=== PATIENT | male | born 1955 | race Caucasian/White ===

== ENCOUNTER 2023-09-19 07:58 | Emergency (ER) | payer MEDICARE, SELFPAY ==
[2023-09-19 07:58] VITALS: BP 127/77; PULSE 68; RESP 17; TEMP 37.2; O2SAT 98
--- NOTE | 2023-09-19 08:07 | ED.GENADULT ---
HPI - General Adult General Chief complaint: Skin/Abscess/Foreign Body Stated complaint: rash Time Seen by Provider: 09/19/23 08:04 History of Present Illness HPI narrative: Goyo is a 68M that was cutting wood in the timber 3 days ago. 2 days ago he developed and erythematous rash with mild itching on his torso and all 4 extremities. No dyspnea, fevers, new meds or other new exposures. Related Data Allergies Allergy/AdvReac Type Severity Reaction Status Date / Time No Known Allergies Allergy Unknown Verified 09/19/23 08:02 Review of Systems Review of Systems: All systems reviewed & are unremarkable except as noted in HPI and below Exam Const: General: cooperative, healthy appearing, comfortable, no acute distress, well developed, alert, awake and Physically active Orientation/consciousness: oriented to person, oriented to place and oriented to time HENMT: Head: normal to inspection, normocephalic and atraumatic Ears: hearing grossly normal bilaterally and external ears normal Face/Nose/Sinus: Normal external nose present Eyes: General: appearance normal, both eyes and all related structures Periorbital: periorbital findings normal Sclera: sclerae normal Pupils: Equal, round and reactive pupils present Neck: Neck: normal visual inspection Chest: Chest palpation & inspection: normal inspection of the chest Resp: Effort & Inspection: normal respiratory effort, able to speak in complete sentences and no respiratory distress Cardio: Jugular venous distension: no JVD Skin: General skin exam: normal color and no rashes or lesions noted Other: diffuse erythematous maculopapular rash all over his torso and all 4 extremities Neuro: General: oriented to person, oriented to place and oriented to time Cranial nerves: Yes Equal, round and reactive pupils present Extrem: General: normal to inspection Course Vital Signs Vital signs: Vital Signs Temperature 98.9 F 09/19/23 07:58 Pulse Rate 68 09/19/23 07:58 Respiratory Rate 17 09/19/23 07:58 Blood Pressure 127/77 09/19/23 07:58 Pulse Oximetry 98 09/19/23 07:58 Oxygen Delivery Room Air 09/19/23 07:58 Temperature 98.9 F 09/19/23 07:58 Pulse Rate 68 09/19/23 07:58 Respiratory Rate 17 09/19/23 07:58 Blood Pressure 127/77 09/19/23 07:58 Pulse Oximetry 98 09/19/23 07:58 Oxygen Delivery Room Air 09/19/23 07:58 Medical Decision Making Vital Signs Vital Signs: Vital Signs Temperature 98.9 F 09/19/23 07:58 Pulse Rate 68 09/19/23 07:58 Respiratory Rate 17 09/19/23 07:58 Blood Pressure 127/77 09/19/23 07:58 Pulse Oximetry 98 09/19/23 07:58 Oxygen Delivery Room Air 09/19/23 07:58 Temperature 98.9 F 09/19/23 07:58 Pulse Rate 68 09/19/23 07:58 Respiratory Rate 09/19/23 07:58 Blood Pressure 127/77 09/19/23 07:58 Pulse Oximetry 98 09/19/23 07:58 Oxygen Delivery Room Air 09/19/23 07:58 Discharge Plan Discharge Clinical Impression: Contact dermatitis Patient Disposition: Home, Self-Care Condition: Stable Instructions: Contact Dermatitis (ED) Prescriptions: New betamethasone dipropionate 0.05 % cream 1 applic topical BID PRN (Reason: rash) 5 Days Qty: 45 0RF Follow-up/Referrals: UNKNOWN,DOCTOR [Primary Care Provider] - Stand Alone Forms: Work/School Release IP
[2023-09-19] MEDS: methylPREDNISolone SOD SUCC 125 MG VIAL IM (08:14)
[2023-09-19 08:32] VITALS: BP 127/77; PULSE 68; RESP 17; TEMP 37.2; O2SAT 98
== END 2023-09-19 08:32 | disposition home or self-care (01) ==
LOC: CHSED 08:29
PROVIDERS: Emergency Provider Family Medicine; PCP Internal Medicine
DX: L25.9 Unspecified contact dermatitis, unspecified cause (principal)
CPT/HCPCS: 96372; 99283; J2919

== ENCOUNTER 2024-09-19 14:31 | Outpatient (CLI) | payer MEDICARE, SELFPAY ==
--- NOTE | ~2024-09-19 | XR_ITS ---
Clinical Indication: Tick bite, chest pain PA and lateral views of the chest: Comparison: 10/14/2016 Findings: The lungs are clear, without evidence of focal consolidation or pleural effusion. Cardiome diastinal silhouette is within normal limits. Bones and soft tissues are unremarkable. Impression: Normal chest. Reviewed, dictated and finalized at location . Impression: Normal chest.
[2024-09-19 14:58] LABS: Hematocrit 43.5 % (37.0-46.0); Hemoglobin 14.3 g/dL (12.4-15.3); Mean Corpuscular HGB Conc 32.9 g/dL (32-36); Mean Corpuscular Volume 94.4 fL (78.0-102.0); Mean Platelet Volume 9.9 fl (8.7-11.0); Platelet Count Result 273 K/mm3 (150-420); Red Blood Count 4.61 M/mm3 (4.70-6.10); Red Cell Distribution Width 12.9 % (11.6-14.4); White Blood Count 10.1 K/mm3 (4.8-10.8)
[2024-09-19 15:02] LABS: Add Urine Microscopic? YES; Appearance Urine Clear (Clear); Bilirubin Urine Negative (Negative); Blood Urine 1+ (Negative); Color Urine Light Yellow (Yellow); Glucose Urine UA Negative (Negative); Ketones Urine Negative (Negative); Leukocyte Esterase Ur Negative (Negative); Nitrate Urine Negative (Negative); Protein Urine Negative (Negative); pH Urine 6.5 (5.0-8.0)
[2024-09-19 15:09] LABS: Squamous Epithelial Cell Urine Few /hpf (Few); WBC Urine 0-3 /hpf (0-3)
[2024-09-19 15:10] LABS: Bacteria Urine Trace /hpf
[2024-09-19 15:14] LABS: Alanine Aminotransferase 18 U/L (6-50); Albumin Level 4.3 g/dL (3.5-5.1); Alkaline Phosphatase 65 U/L (38-126); Anion Gap 7 mmol/L (4-12); Aspartate Amino Transferase 29 U/L (17-59); Bilirubin,Total 0.7 mg/dL (0.2-1.3); Blood Urea Nitrogen 14 mg/dL (9-20); CRP < 0.5 mg/dL (<1.0); Calcium 8.9 mg/dL (8.4-10.2); Carbon Dioxide 24 mmol/L (22-30); Chloride 108 mmol/L (98-107); Creatine Kinase 63 U/L (55-170); Estimated Glomerular Filt Rate > 60; Glucose 166 mg/dL (65-110); Osmolality Calculated 292 mOsm/kg (285-295); Potassium 4.1 mmol/L (3.4-5.0); Sodium 139 mmol/L (137-145); Total Protein 7.5 g/dL (6.3-8.2)
[2024-09-19 17:48] LABS: Hemoglobin A1C 5.6 % (<5.7)
[2024-09-21 15:13] LABS: Lyme Disease Ab (IgM), Blot NEGATIVE (NEGATIVE); Lyme Disease Ab(IgG), Blot NEGATIVE (NEGATIVE)
== END 2024-09-19 14:32 | disposition home or self-care (01) ==
LOC: CHSLAB 14:33
PROVIDERS: PCP Internal Medicine; Visit Provider Internal Medicine
DX: R07.89 Other chest pain (principal); R73.09 Other abnormal glucose
CPT/HCPCS: 36415; 71046; 80053; 81001; 82550; 83036; 85027; 86140; 86617

== ENCOUNTER 2024-10-23 09:50 | Outpatient (CLI) | payer MEDICARE, SELFPAY ==
--- NOTE | ~2024-10-23 | CT_ITS ---
CT of the Abdomen and Pelvis: Indication: Microscopic hematuria Technique: 2.5 mm axial scans were obtained through the abdomen and pelvis prior to and following in travenous administration of 130 cc of Omnipaque 350. Dose reduction technique was used on this scan b y utilizing automated exposure control and iterative reconstruction technique. The dose-length produc t (DLP) was 642.31 mGy-cm. Findings: Scans through the lung bases are unremarkable. The liver, spleen, pancreas, gallbladder, adrenals and kidneys are within normal limits. There are at herosclerotic calcifications of the aorta. No lymphadenopathy. No bowel obstruction or bowel wall thickening. There is no evidence to suggest acute appendicitis. Images through the pelvis were performed. Urinary bladder unremarkable. No pelvic mass seen. No ascit es. Impression: No etiology for hematuria identified. No significant abnormality seen. Reviewed, dictated and finalized at [facility]. Impression: No etiology for hematuria identified. No significant abnormality seen.
[2024-10-23 10:16] LABS: Estimated Glomerular Filt Rate > 60
== END 2024-10-23 09:51 | disposition home or self-care (01) ==
LOC: CHSIMG 09:51
PROVIDERS: PCP Internal Medicine; Visit Provider Nurse Practitioner Family
DX: R31.29 Other microscopic hematuria (principal)
CPT/HCPCS: 74178; Q9967